=== PATIENT | female | born 1990 | race Caucasian/White ===

== ENCOUNTER → 2024-07-13 | Day surgery (SDC) | payer SELFPAY ==
[~2024-07-13] MED LIST: ACETAMINOPHEN 1000 MG/100 ML IV ONE; ACETAMINOPHEN/CODEINE 300MG - 30MG TAB ONE; BUPIVACAINE 0.5%/EPI 30 ML SDV INJ ONE; DEXAMETHASONE SOD PHOS 10 MG/1 ML VIAL ONE; FAMOTIDINE 20 MG/2 ML VIAL IV ONE; FENTANYL CITRATE/PF 100MCG/2 ML INJ ONE; LIDOCAINE HCL 2% LOCAL INJ 5 ML SDV VIAL INJ ONE; MIDAZOLAM HCL 2 MG/2 ML VIAL ONE; ONDANSETRON HCL INJ 2MG/ML 2ML 2 MG/ML VIAL ONE; OZEMPIC0.25 MG/02; PROPOFOL IV EMULSION 10 MG/ML 20 ML VIAL ONE; ROCURONIUM BROMIDE 10 MG/ML 5ML VIAL IV ONE; SEVOFLURANE INHAL SOLN 250 ML PEN BTL ONE; SUGAMMADEX SODIUM 200 MG/2 ML VIAL IV ONE; ZOLOFT100 MG PO
[2024-07-13] MEDS: FENTANYL CITRATE/PF 100MCG/2 ML INJ ONE (12:14)
[2024-07-13 13:00] VITALS: BP 121/87; PULSE 66; RESP 18; O2SAT 99
[2024-07-13] MEDS: ACETAMINOPHEN/CODEINE 300MG - 30MG TAB PO ONE (13:00)
== END | disposition home or self-care (01) ==
LOC: OR 09:44
PROVIDERS: ATTEND Otolaryngology Otolaryngology/Facial Plastic Surgery
DX: J03.91 Acute recurrent tonsillitis, unspecified (principal); J35.01 Chronic tonsillitis; E66.01 Morbid (severe) obesity due to excess calories; F41.9 Anxiety disorder, unspecified; F32.A Depression, unspecified; Z91.048 Other nonmedicinal substance allergy status; Z79.85 Long-term (current) use of injectable non-insulin antidiabetic drugs; Z79.899 Other long term (current) drug therapy
CPT/HCPCS: 42826; 81025; 88304; J2250; J3010; J1100; J2003; J2405